=== PATIENT | female | born 1995 | race Caucasian/White ===

== ENCOUNTER 2016-10-03 14:28 | Emergency (ER) | payer OTHER ==
[~2016-10-03 14:28] MED LIST: COLACE 100MG C100 MG PO
[2016-10-03 15:21] LABS: HEMOGLOBIN 13.3 gm/dl (12.3-15.3); RED BLOOD COUNT 4.69 M/UL (4.00-5.10); WHITE BLOOD COUNT 9.3 K/UL (4.5-11.0)
[2016-10-03 16:28] LABS: BUN/CREATININE RATIO 28 (0-10)
== END 2016-10-03 18:26 | disposition home or self-care (01) ==
LOC: ER1 14:28
PROVIDERS: Physician Assistant
DX: J02.0 Streptococcal pharyngitis (principal); R53.83 Other fatigue; R10.84 Generalized abdominal pain; R11.2 Nausea with vomiting, unspecified; R19.7 Diarrhea, unspecified; Z88.1 Allergy status to other antibiotic agents; F17.200 Nicotine dependence, unspecified, uncomplicated
CPT/HCPCS: 36415; 71020; 80053; 81001; 82150; 83605; 83690; 84703; 85025; 87040; 87081; 87880; 99284; J0500; J0561; J2405

== ENCOUNTER 2016-10-18 11:40 | Emergency (ER) | payer OTHER ==
[2016-10-18 12:24] LABS: HEMOGLOBIN 11.6 gm/dl (12.3-15.3); RED BLOOD COUNT 4.12 M/UL (4.00-5.10); WHITE BLOOD COUNT 3.7 K/UL (4.5-11.0)
[2016-10-18 12:48] LABS: BUN/CREATININE RATIO 17 (0-10)
== END 2016-10-18 16:25 | disposition home or self-care (01) ==
LOC: ER1 11:40
PROVIDERS: Physician Assistant Medical
DX: J10.1 Influenza due to other identified influenza virus with other respiratory manifestations (principal); E86.0 Dehydration; B34.9 Viral infection, unspecified; F17.210 Nicotine dependence, cigarettes, uncomplicated; Z88.1 Allergy status to other antibiotic agents
CPT/HCPCS: 36415; 71020; 80053; 81001; 82150; 83605; 83690; 84703; 85025; 87081; 87880; 96361; 96374; 99284; J2405; J7030; J7050; Q9962

== ENCOUNTER 2016-12-27 10:30 | Emergency (ER) | payer OTHER | END 2016-12-27 12:20 | disposition home or self-care (01) | LOC: ER1 10:30 | DX: R11.2 Nausea with vomiting, unspecified (principal); R19.7 Diarrhea, unspecified | CPT/HCPCS: 81001; 84703; 87086; 89055; 99284; Q0162 ==

== ENCOUNTER 2021-03-19 09:50 | Emergency (ER) | payer OTHER ==
[~2021-03-19 09:50] MED LIST changes: +IBUPROFEN600 MG PO; +IRON325 M1 PO; +PERCOCET 5/325 T1 EA PO; +PRENATAL TABLE1 EAC2 PO; +ZOFRAN ODT 4 MG4 MG PO
[2021-03-19 12:53] LABS: RED BLOOD COUNT 4.3 M/UL (4.00-5.10)
[2021-03-19 13:10] LABS: BUN/CREATININE RATIO 20 (0-10)
[2021-03-19] MEDS ORDERED: MACROBID 100 M100 M1 PO (14:38)
[2021-03-19] MEDS ORDERED: ZOFRAN ODT 4 MG4 MG SL (14:38)
== END 2021-03-19 14:54 | disposition home or self-care (01) ==
LOC: ER1 09:50
PROVIDERS: Physician Assistant
DX: N39.0 Urinary tract infection, site not specified (principal); Z88.1 Allergy status to other antibiotic agents; Z79.899 Other long term (current) drug therapy
CPT/HCPCS: 80048; 81001; 84703; 85025; 87086; 96372; 99284; J1885